=== PATIENT | female | born 1965 | race Caucasian/White ===

== ENCOUNTER 2016-05-11 09:15 | Emergency (ER) | payer MEDICAID, OTHER ==
[~2016-05-11] VITALS: Ht 147.3 cm; Wt 65.0 kg
[2016-05-11 09:17] VITALS: BP 130/77; PULSE 83; RESP 16; TEMP 97.7; O2SAT 98
--- NOTE | 2016-05-11 10:06 | PD ---
HPI Chief Complaint: Complaint Time Seen by Provider: 10:00 Travel History International Travel<30 days: No Contact w/Intl Traveler<30days: No Traveled to known affect area: No History of Present Illness HPI 51-year-old female presents to the emergency room for evaluation of subjective fever, dysuria, and flank pain for the past several days. Patient states it started off with dysuria 4 days ago. She increased her water intake and the dysuria dissipated. She also reports urgency but no frequency. Flank pain is worse with palpation. She has been taking ibuprofen for her fever and pain and drinking cranberry juice without relief in symptoms. She has not actually taken her temperature. Denies nausea, vomiting, abdominal pain, and vaginal discharge. PFSH Past Medical History Medical History: Denies Significant Hx Diminished Hearing: No Tetanus Vaccination: Unknown Influenza Vaccination: No ?: Not Menopausal: Yes Tubal Ligation: Yes Past Surgical History Appendectomy: Yes Gynecologic Surgery: Yes (TUBAL LIGATION) Social History Alcohol Use: No Tobacco Use: Yes (1 PPD) Substance Use: No Allergies-Medications (Allergen,Severity, Reaction): Coded Allergies: Penicillin (Verified Allergy, Unknown, 05/11/16) Reported Meds & Prescriptions Reported Meds & Active Scripts Active No Active Prescriptions or Reported Medications Review of Systems Except as stated in HPI: all other systems reviewed are Neg Physical Exam Narrative GENERAL: Well-nourished, well-developed female in no acute distress. Afebrile. Ambulatory. SKIN: Warm and dry. HEAD: Normocephalic. EYES: No scleral icterus. No injection or drainage. NECK: Supple, trachea midline. No JVD or lymphadenopathy. GASTROINTESTINAL: Abdomen soft, non-tender, nondistended. BACK: Nontender without obvious deformity. Moderate right-sided CVA tenderness. Data Data Last Documented VS Vital Signs Date Time Temp Pulse Resp B/P Pulse Ox O2 Delivery O2 Flow Rate FiO2 05/11/16 09:17 97.7 83 16 130/77 98 Orders Urinalysis - C+S If Indicated (05/11/16 09:34) Urine Culture (05/11/16 09:35) Labs Laboratory Tests Test 05/11/16 09:35 Urine Color YELLOW Urine Turbidity HAZY Urine pH 6.0 Urine Specific [place] 1.009 Urine Protein NEG mg/dL Urine Glucose (UA) NEG mg/dL Urine Ketones NEG mg/dL Urine Occult Blood TRACE Urine Nitrite NEG Urine Bilirubin NEG Urine Urobilinogen LESS THAN 2.0 MG/DL Urine Leukocyte Esterase LARGE Urine RBC 1 /hpf Urine WBC /hpf Urine WBC Clumps RARE Urine Squamous Epithelial 2 /hpf Cells Urine Renal Epithelial Cells <1 /hpf Urine Bacteria MANY /hpf Urine Mucus FEW /lpf Microscopic Urinalysis Comment CULTURE INDICATED MDM Medical Decision Making Medical Screen Exam Complete: Yes Emergency Medical Condition: Yes Medical Record Reviewed: Yes Differential Diagnosis Dysuria versus hematuria versus urinary tract infection versus pyelonephritis Narrative Course 51-year-old female presents to the emergency room for evaluation of dysuria and subjective fevers for the past 4 days. She has not actually taken her temperature. Patient is afebrile and well-appearing in the emergency room. Resting comfortably in bed. Physical exam reveals abdomen soft, nontender. There is moderate right-sided CVA tenderness. UA is evidence of urinary tract infection. Given CVA tenderness, patient likely has pyelonephritis. She is stable for outpatient treatment. Discharged with ciprofloxacin and told to follow up with primary care physician or return to the emergency room for worsening symptoms. To this plan. Diagnosis Primary Impression: Pyelonephritis Referrals: Primary Care Physician Patient Instructions: General Instructions, Urinary Tract Infection in Women ( ED) Additional Instructions: Rest and drink plenty of fluids. Ciprofloxacin as directed, until gone. Take ibuprofen with food as directed, as needed for pain. Follow-up with a primary care physician. Return to the emergency room for worsening symptoms. Med/Other Pt SpecificInfo: Prescription(s) given Scripts Ciprofloxacin (Cipro)500 Mg Vof017 Mg PO Q12HR 7 Days Ref 0 Prov:Kayli Nicole DO 05/11/16 Disposition: 01 DISCHARGE HOME Condition: Stable Ale Larios May 11, 2016 10:06
[2016-05-11 10:12] LABS: BACTERIA, URINE MANY /hpf; BLOOD, URINE TRACE (NEG); COMMENT (UR) CULTURE INDICATED; CULTURE IF INDICATED CULTURE INDICATED; GLUCOSE,URINE NEG (NEG); KETONE, URINE NEG (NEG); MUCUS URINE FEW /lpf (OCC); NITRITE,URINE NEG (NEG); RENAL EPITHELIAL CELLS <1 /hpf; SQUAMOUS EPITHELIAL CELL URINE 2 /hpf (0-5); URINE COLOR YELLOW (YELLW/STRAW)
[2016-05-11] MEDS ORDERED: CIPR-9 PO (10:16)
== END 2016-05-11 10:33 | disposition home or self-care (01) ==
LOC: NEPB 09:15
DX: N12 Tubulo-interstitial nephritis, not specified as acute or chronic (principal); B96.20 Unspecified Escherichia coli [E. coli] as the cause of diseases classified elsewhere; R50.9 Fever, unspecified
CPT/HCPCS: 81001; 87077; 87086; 87186; 99284

== ENCOUNTER 2016-06-07 07:39 | Emergency (ER) | payer MEDICAID, OTHER ==
[~2016-06-07] VITALS: Ht 147.3 cm; Wt 60.0 kg
[~2016-06-07 07:39] MED LIST: CIPR-9 PO
[2016-06-07 07:41] VITALS: BP 188/84; PULSE 60; RESP 16; TEMP 97.5; O2SAT 97
[2016-06-07] MEDS ORDERED: PERI0.126 SWISH-SPIT (07:54)
[2016-06-07] MEDS ORDERED: MAGICADU2 SWISH-SPIT (07:54)
[2016-06-07] MEDS ORDERED: CLIN1CAP5 PO (07:54)
[2016-06-07] MEDS ORDERED: IBUP800T23 PO (07:54)
--- NOTE | 2016-06-07 07:54 | PD ---
HPI Chief Complaint: Oral / Dental Pain or Problem Time Seen by Provider: 07:51 Travel History International Travel<30 days: No Contact w/Intl Traveler<30days: No Traveled to known affect area: No History of Present Illness HPI 51-year-old female presents to the emergency Department with complaint of left upper tooth pain 2 days. Reports facial edema without erythema. Denies fever , chills, nausea, vomiting. Pain is aggravated with eating and drinking. Pain is constant. Described as throbbing. Has tried Orajel and a temporary tooth filler with no relief of pain. No known relieving factors. Allergies to penicillin. Denies significant past medical history. No other modifying factors or associated signs and symptoms. PFSH Past Medical History Medical History: Denies Significant Hx Diminished Hearing: No Menopausal: Yes Tubal Ligation: Yes Past Surgical History Appendectomy: Yes Gynecologic Surgery: Yes (TUBAL LIGATION) Social History Alcohol Use: No Tobacco Use: Yes (1 PPD) Substance Use: No Allergies-Medications (Allergen,Severity, Reaction): Coded Allergies: Penicillin (Verified Allergy, Unknown, 05/11/16) Reported Meds & Prescriptions Reported Meds & Active Scripts Active Ibuprofen 800 Mg Tab 800 Mg PO Q6HR PRN Clindamycin (Clindamycin HCl) 150 Mg Cap 450 Mg PO Q6H 10 Days Magic Mouthwash Adult Liq (Multi-Ingredient Mouthwash/Gargle) 120 Ml Susp 5 Ml SWISH-SPIT Q3HR PRN Each 5mL contains: Nystatin 200,000units, Diphenhydramine 4.25mg, Viscous Lidocaine 10mg, Parada syrup 0.8 mL Peridex Liq (Chlorhexidine Gluconate (Mouth) Liq) 0.12% Soln 15 Ml SWISH-SPIT BID 10 Days Cipro (Ciprofloxacin HCl) 500 Mg Tab 500 Mg PO Q12HR 7 Days Review of Systems Except as stated in HPI: all other systems reviewed are Neg Physical Exam Narrative GENERAL: Well-nourished, well-developed patient, in no acute distress; afebrile , nontoxic-appearing SKIN: Warm and dry. HEAD: Atraumatic. Normocephalic. Left cheek with edema and without erythema; with tenderness on palpation. No lymphadenopathy. EYES: Pupils equal and round. No scleral icterus. No injection or drainage. ENT: Mucosa pink and moist. Airway patent. MOUTH: Mucous membranes moist, no lesions, tongue and gums appear normal. Left upper tooth #14 with large dental cavity and decay; with tenderness on palpation ; no obvious abscess noted surrounding gingiva is mildly edematous and without erythema or drainage. Poor dentition throughout. Multiple dental caries and tooth decay. NECK: Trachea midline. No lymphadenopathy. CARDIOVASCULAR: Regular rate. RESPIRATORY: No accessory muscle use. GASTROINTESTINAL: Flat. MUSCULOSKELETAL: No obvious deformities. No clubbing. No cyanosis. No edema. NEUROLOGICAL: Awake and alert. Oriented 3. No obvious cranial nerve deficits. Motor grossly within normal limits. Normal speech. PSYCHIATRIC: Appropriate mood and affect; insight and judgment normal. Data Data Last Documented VS Vital Signs Date Time Temp Pulse Resp B/P Pulse Ox O2 Delivery O2 Flow Rate FiO2 06/07/16 07:41 97.5 60 16 188/84 97 Room Air Orders Clindamycin Inj (Cleocin Inj) (06/07/16 08:00) Prednisone (Deltasone) (06/07/16 08:00) Ibuprofen (Motrin) (06/07/16 08:00) MDM Medical Decision Making Medical Screen Exam Complete: Yes Emergency Medical Condition: Yes Medical Record Reviewed: Yes Differential Diagnosis Dentalgia, dental abscess, dental caries, gingivitis Narrative Course 51-year-old female physical exam consistent with left upper tooth #14 dentalgia with possible dental abscess. Left cheek edematous and without erythema. Patient is afebrile and nontoxic-appearing. She denies fever, chills, nausea, vomiting. Coly-Mycin 600 mg IM, Deltasone, ibuprofen administered in the ER. Clindamycin, Deltasone, Peridex mouth rinse, Magic mouthwash, ibuprofen prescribed for home. Emergency dental information sheet provided. Instructed patient to follow up with dentist and she verbalized understanding and agreement for treatment plan. Patient is medically cleared and stable for discharge. Discussed reasons to return to the emergency department. Instructed patient to follow up with primary care provider. Patient agrees with treatment plan. The patients vital signs are stable and the patient is stable for outpatient follow-up and treatment. Patient discharged home, stable and in no acute distress. Diagnosis Primary Impression: Dentalgia Referrals: Dentist Primary Care Physician Patient Instructions: Dental Abscess (ED), Dental Caries (ED), General Instructions, Toothache (ED) Departure Forms: Tests/Procedures, Work Release Enter return to work date: Jun 08, 2016 Additional Instructions: Complete full course of antibiotics Ibuprofen as directed and as needed to reduce pain and inflammation Use Magic mouthwash rinse as directed and as needed to decrease pain Use Peridex as directed for oral hygiene Warm compresses to the affected area Follow-up with dentist Follow-up with primary care provider Return to emergency department immediately with worsening of symptoms Med/Other Pt SpecificInfo: Prescription(s) given Scripts Prednisone (Deltasone)20 Mg Tab40 Mg PO DAILY 4 Days Ref 0 start 06/08/2016 Prov:Brenda Ruiz 06/07/16 Ibuprofen 800 Mg [id number] Mg PO Q6HR PRN (PAIN) #30 TAB Ref 0 Prov:Brenda Ruiz 06/07/16 Clindamycin 150 Mg [id number] Mg PO Q6H 10 Days Ref 0 Prov:Brenda Ruiz 06/07/16 Hzlnlovh-Lrtgtykcgedircw-Mkxicdare Liq (Magic Mouthwash Adult Liq)120 Ml Susp5 Ml SWISH-SPIT Q3HR PRN (PAIN SCALE 1 TO 10) #120 ML Ref 0 Each 5mL contains: Nystatin 200,000units, Diphenhydramine 4.25mg, Viscous Lidocaine 10mg, Parada syrup 0.8 mL Prov:Brenda uRiz 06/07/16 Chlorhexidine Gluconate (Mouth) Liq (Peridex Liq)0.12% Soln15 Ml SWISH-SPIT BID 10 Days Ref 0 Prov:Brenda Ruiz 06/07/16 Disposition: 01 DISCHARGE HOME Condition: Stable Brenda Ruiz Jun 07, 2016 07:54
[2016-06-07] MEDS ORDERED: PRED-503 PO (07:59)
[2016-06-07] MEDS ORDERED: predniSONE 20 MG TAB PO ONE (08:00)
[2016-06-07] MEDS ORDERED: IBUPROFEN 800 MG TAB PO ONE (08:00)
[2016-06-07] MEDS ORDERED: CLINDAMYCIN PHOS 600 MG/4 ML VIAL IM ONE (08:00)
== END 2016-06-07 09:02 | disposition home or self-care (01) ==
LOC: NEPB 07:39
DX: K08.89 Other specified disorders of teeth and supporting structures (principal); R60.0 Localized edema; F17.200 Nicotine dependence, unspecified, uncomplicated
CPT/HCPCS: 96372; 99282; J7512

== ENCOUNTER 2016-06-21 14:32 | Emergency (ER) | payer OTHER, MEDICAID ==
[~2016-06-21] VITALS: Ht 147.3 cm; Wt 60.0 kg
[~2016-06-21 14:32] MED LIST changes: +CLIN1CAP5 PO; +IBUP800T23 PO; +MAGICADU2 SWISH-SPIT; +PERI0.126 SWISH-SPIT; +PRED-503 PO
[2016-06-21 14:34] VITALS: BP 155/90; PULSE 90; RESP 16; TEMP 97.9; O2SAT 97
[2016-06-21] MEDS ORDERED: NORC5TAB PO (14:53)
[2016-06-21] MEDS ORDERED: CLIN150 PO (14:53)
[2016-06-21] MEDS ORDERED: PERI0.126 SWISH-SPIT (14:53)
--- NOTE | 2016-06-21 14:53 | PD ---
HPI Chief Complaint: Oral / Dental Pain or Problem Time Seen by Provider: 14:42 Travel History International Travel<30 days: No Contact w/Intl Traveler<30days: No Traveled to known affect area: No History of Present Illness HPI The patient is a 51-year-old female who presents emergency department for dental pain. The patient states she is evaluated in May for dental pain , was placed on antibiotics for several days and had resolution of her symptoms. However, the patient then had an upper respiratory infection and her tooth pain started once again. The pain is located in left upper aspect of the mouth, is nonradiating, but states it is worse with mastication, and hot and cold liquids. The pain is sharp, sudden, radiates to the left maxilla, and was improved after taking clindamycin. The patient has a history of allergies to penicillin. The patient has not followed up with a dentist. The patient does smoke one pack of cigarettes per day. PFSH Past Medical History Medical History: Denies Significant Hx Diminished Hearing: No Tetanus Vaccination: > 5 Years Influenza Vaccination: No ?: Not LMP: 2014 Menopausal: Yes Tubal Ligation: Yes Past Surgical History Appendectomy: Yes Gynecologic Surgery: Yes (TUBAL LIGATION) Social History Alcohol Use: No Tobacco Use: Yes (1 PPD) Substance Use: No Allergies-Medications (Allergen,Severity, Reaction): Coded Allergies: Penicillin (Verified Allergy, Unknown, 05/11/16) Reported Meds & Prescriptions Reported Meds & Active Scripts Active Deltasone (Prednisone) 20 Mg Tab 40 Mg PO DAILY 4 Days start 06/08/2016 Ibuprofen 800 Mg Tab 800 Mg PO Q6HR PRN Clindamycin (Clindamycin HCl) 150 Mg Cap 450 Mg PO Q6H 10 Days Magic Mouthwash Adult Liq (Multi-Ingredient Mouthwash/Gargle) 120 Ml Susp 5 Ml SWISH-SPIT Q3HR PRN Each 5mL contains: Nystatin 200,000units, Diphenhydramine 4.25mg, Viscous Lidocaine 10mg, Parada syrup 0.8 mL Peridex Liq (Chlorhexidine Gluconate (Mouth) Liq) 0.12% Soln 15 Ml SWISH-SPIT BID 10 Days Cipro (Ciprofloxacin HCl) 500 Mg Tab 500 Mg PO Q12HR 7 Days Review of Systems General / Constitutional: No: Fever HENT: Positive: Dental Difficulties, No: Sore Throat, Neck Pain, Earache Skin: No Rash Physical Exam Narrative GENERAL: Awake, alert, pleasant 51-year-old female who appears his stated age and is in no acute respiratory distress. SKIN: Warm and dry. HEAD: Atraumatic. Normocephalic. EYES: Pupils equal and round. No scleral icterus. No injection or drainage. ENT: No nasal bleeding or discharge. TMs are translucent and EACs are clear. Dentition reveals multiple cavities and partially avulsed teeth on the upper and lower aspect. Tooth #14 has a partial filling in place, no gingival swelling noted over the affected area. Mildly tender to palpation. NECK: Trachea midline. No JVD. MUSCULOSKELETAL: No obvious deformities. No clubbing. No cyanosis. No edema. NEUROLOGICAL: Awake and alert. No obvious cranial nerve deficits. Motor grossly within normal limits. Normal speech. PSYCHIATRIC: Appropriate mood and affect; insight and judgment normal. Data Data Last Documented VS Vital Signs Date Time Temp Pulse Resp B/P Pulse Ox O2 Delivery O2 Flow Rate FiO2 06/21/16 14:45 85 18 06/21/16 14:34 97.9 155/90 97 Room Air MDM Medical Decision Making Medical Screen Exam Complete: Yes Emergency Medical Condition: Yes Differential Diagnosis Differential diagnoses includes cavity, pericarditis, odontalgia, gingivitis, dental abscess, parotitis, otitis media, malignant otitis externa. Narrative Course The patient's source of pain appears to be tooth #14 which has a filling in place with partial avulsion. Patient we placed on clindamycin and then placed on Peridex. She is advised to stop smoking and to follow-up with a dentist. Diagnosis Primary Impression: Dentalgia Patient Instructions: General Instructions Additional Instructions: Medications as directed. Follow-up with a dentist. Stop smoking. Return if symptoms worsen or progress. Med/Other Pt SpecificInfo: Prescription(s) given Scripts Hydrocodone-Acetaminophen ([place])5-325 mg Tab1 Tab PO Q6H PRN (PAIN) #15 TAB Ref 0 Prov:Zak De La Fuente MD 06/21/16 Chlorhexidine Gluconate (Mouth) Liq (Peridex Liq)0.12% Soln15 Ml SWISH-SPIT BID #473 ML Ref 0 Prov:Zak De La Fuente MD 06/21/16 Clindamycin (Cleocin)150 Mg [id number] Mg PO Q6H 10 Days Ref 0 Prov:Zak De La Fuente MD 06/21/16 Disposition: 01 DISCHARGE HOME Condition: Stable Zak De La Fuente MD Jun 21, 2016 14:53
== END 2016-06-21 15:21 | disposition home or self-care (01) ==
LOC: NEPE 14:32
DX: K08.89 Other specified disorders of teeth and supporting structures (principal); F17.210 Nicotine dependence, cigarettes, uncomplicated
CPT/HCPCS: 99282